=== PATIENT | female | born 1985 | race American Indian/Alaskan Native ===

== ENCOUNTER 2017-03-29 23:18 | Inpatient (IN) | payer MEDICAID ==
[2017-03-29 23:55] LABS: Basophils % (Auto) 1.3 % (0.0-1.8); Eosinophils % (Auto) 3.3 % (0.0-4.3); Hematocrit 39.2 % (30.3-42.9); Hemoglobin 12.8 gm/dl (10.1-14.3); Mean Corpuscular HGB Conc 33 % (30-34); Mean Corpuscular Hemoglobin 28 pg (28-32); Mean Corpuscular Volume 84 fl (79-97); Platelet Count 308 K/mm3 (140-440); Red Blood Count 4.66 M/mm3 (3.65-5.03); Red Cell Distribution Width 13.2 % (13.2-15.2); White Blood Count 5.9 K/mm3 (4.5-11.0)
[2017-03-30 00:06] LABS: INR 1.02 (0.87-1.13)
[2017-03-30 00:07] LABS: Partial Thromboplastin Time 31.3 Sec. (24.2-36.6)
[2017-03-30 00:10] LABS: Anion Gap 16 mmol/L; BUN/Creatinine Ratio 16.25; Blood Urea Nitrogen 13 mg/dL (7-17); Calcium 9.2 mg/dL (8.4-10.2); Carbon Dioxide 25 mmol/L (22-30); Chloride 101.7 mmol/L (98-107); Glucose 99 mg/dL (65-100); Potassium 4.4 mmol/L (3.6-5.0); Sodium 138 mmol/L (137-145)
--- NOTE | 2017-03-30 00:10 | Cat Scan Report ---
FINAL REPORT EXAM: CT HEAD/BRAIN WO CON HISTORY: neuro deficits \T\lt; 6hrs or sx present upon awakening TECHNIQUE: Noncontrast serial axial images from skull base to vertex. PRIORS: None. FINDINGS: There is no mass effect or midline shift. There are no abnormal intra or extra-axial fluid collections. Cortical sulci and lateral ventricles are within normal limits for size and configuration. Basilar cisterns are patent. No acute intracranial hemorrhage is identified. Visualized paranasal sinuses and mastoid air cells are well aerated. No acute osseous abnormality is identified. IMPRESSION: 1. No abnormal mass or acute intracranial hemorrhage is identified. 2. Patient can be further assessed with MRI with diffusion-weighted imaging if indicated.
[2017-03-30] MEDS ORDERED: REGLAN IV ONE (00:15)
[2017-03-30] MEDS ORDERED: MAGNESIUM SULFATE 2GM/50ML 2 GM/50 ML BAG IV ONE (00:15)
[2017-03-30] MEDS ORDERED: BENADRYL IV ONE (00:15)
--- NOTE | 2017-03-30 00:16 | Emergency Department Report ---
ED General Adult HPI - General Chief complaint: Headache Stated complaint: R SIDE NUMBNESS/HOWARD X 3 DAYS/BACK PAIN Time Seen by Provider: 03/29/17 23:49 Source: patient, RN notes reviewed Mode of arrival: Ambulatory Limitations: No Limitations - History of Present Illness Initial comments: This is a 31-year-old female. She is previously unknown to me. She does not have a primary care doctor. She does not have any formal medical problems that she is aware of. She reports that she is not . The patient presents to the ER today with complaint of headache, right upper extremity numbness and chest tightness. The headache started on Tuesday. It is not sudden or thunderclap in nature. It did not reach maximal intensity within an hour. It is not the worse headache of her life. The headache is occipital and left-sided. The headache has been constant. There is no photophobia or phonophobia. There is no neck pain or neck stiffness. Patient reports that at 8:30 on the day of presentation, she developed right upper extremity numbness. She reports she is having this constellation of symptoms in the past, and was instructed that it was a " pinched nerve because of my migraine." However, she also goes on to elaborate that received a formal diagnosis of migraine by neurologist. The chest pain is central, and does not radiate to the back, arms or neck. There is no nausea, vomiting or diaphoresis. There is no leg pain or leg swelling. No posterior leg pain, no control tablets, no recent trips greater than 4 hours, no recent surgeries, no recent aspirin use, no recent cocaine use. No hematemesis or bright red blood per rectum, no midline neck pain, no bladder or bowel retention/incontinence. -: Gradual Location: head, chest, right, upper extremity Radiation: extremity Quality: burning, aching Consistency: constant Improves with: none Worsens with: none Associated Symptoms: chest pain, headaches. denies: confusion - Related Data Previous Rx's Medication Instructions Recorded Last Taken Type Amoxicillin [Amoxicillin TAB] 875 mg PO BID #14 tablet 11/16/15 Unknown Rx Fluticasone [Flonase] 1 spray NS QDAY #1 bottle 11/16/15 Unknown Rx methylPREDNISolone [Medrol Dose 4 mg PO QAM #1 pack 11/16/15 Unknown Rx Derik] Allergies Allergy/AdvReac Type Severity Reaction Status Date / Time No Known Allergies Allergy Unverified 11/15/15 20:38 ED Review of Systems ROS: Stated complaint: R SIDE NUMBNESS/HOWARD X 3 DAYS/BACK PAIN Other details as noted in HPI Constitutional: denies: fever, malaise Eyes: denies: eye discharge ENT: denies: epistaxis Respiratory: denies: cough Cardiovascular: chest pain Gastrointestinal: denies: abdominal pain, nausea, vomiting Genitourinary: denies: dysuria Musculoskeletal: denies: back pain Skin: denies: lesions Neurological: headache, weakness, numbness ED Past Medical Hx - Past Medical History Previous Medical History?: Yes Hx Hypertension: Yes Additional medical history: hypothyroidism - Surgical History Past Surgical History?: Yes Additional Surgical History: cyst removal - Social History Smoking Status: Never Smoker Substance Use Type: None - Medications Home Medications: Home Medications Medication Instructions Recorded Confirmed Last Taken Type Amoxicillin [Amoxicillin TAB] 875 mg PO BID #14 tablet 11/16/15 Unknown Rx Fluticasone [Flonase] 1 spray NS QDAY #1 bottle 11/16/15 Unknown Rx methylPREDNISolone [Medrol Dose 4 mg PO QAM #1 pack 11/16/15 Unknown Rx Derik] ED Physical Exam - General Limitations: No Limitations General appearance: alert, in no apparent distress - Head Head exam: Present: atraumatic, normocephalic - Eye Eye exam: Present: normal appearance, PERRL, EOMI. Absent: nystagmus - ENT ENT exam: Present: normal exam, normal orophraynx, mucous membranes moist, normal external ear exam - Neck Neck exam: Present: normal inspection, full ROM - Respiratory Respiratory exam: Present: normal lung sounds bilaterally. Absent: respiratory distress, wheezes, rales, rhonchi, stridor, chest wall tenderness - Cardiovascular Cardiovascular Exam: Present: regular rate, normal rhythm, normal heart sounds. Absent: bradycardia, tachycardia, irregular rhythm, systolic murmur, diastolic murmur, rubs, gallop - GI/Abdominal GI/Abdominal exam: Present: soft, normal bowel sounds. Absent: distended, tenderness, guarding, rebound, rigid, pulsatile mass - Extremities Exam Extremities exam: Present: normal inspection, full ROM, normal capillary refill. Absent: tenderness, pedal edema, joint swelling, calf tenderness - Back Exam Back exam: Present: normal inspection, full ROM. Absent: tenderness, CVA tenderness (R), CVA tenderness (L), muscle spasm, paraspinal tenderness, vertebral tenderness - Neurological Exam Neurological exam: Present: alert, oriented X3, normal gait, other (5 and a 5 strength bilateral upper and lower extremities. Sensation intact to light touch in the bilateral upper and lower extremities, however the patient endorses decreased sensation to light touch in the right upper extremity. There is no facial droop, the tongue is midline, extraocular movements are intact bilaterally. V1, V2, V3 intact bilaterally. Shoulder shrug is intact bilaterally.). Absent: motor sensory deficit - Psychiatric Psychiatric exam: Present: anxious - Skin Skin exam: Present: warm, dry, intact, normal color. Absent: rash ED Course Vital Signs 03/29/17 03/30/17 03/30/17 23:23 00:01 00:45 Temperature 97.7 F Pulse Rate 62 60 65 Respiratory 18 17 12 Rate Blood Pressure 119/80 Blood Pressure 104/67 109/73 [Left] O2 Sat by Pulse 99 98 99 Oximetry 03/30/17 01:35 Temperature Pulse Rate 61 Respiratory 19 Rate Blood Pressure Blood Pressure 114/74 [Left] O2 Sat by Pulse 100 Oximetry ED Medical Decision Making - Lab Data Result diagrams: 03/29/17 23:36 03/29/17 23:36 - EKG Data -: EKG Interpreted by [facility] EKG shows normal: sinus rhythm, axis, intervals, QRS complexes, ST-T waves - EKG Data 03/30/17 02:16 Normal sinus, 60 beats per minute, normal axis, left axis deviation, not morphologically consistent with STEMI. There is no prior for comparison. - Radiology Data Radiology results: report reviewed, image reviewed Noncontrast CT scan of the brain is negative. X-ray the chest is negative - Medical Decision Making Differential diagnosis: Transient ischemic attack, stroke, complex migraine, radiculopathy, acute coronary syndrome, anxiety, conversion disorder Assessment and plan: 31-year-old female, no vascular risk factors, ABCD 2 score of 1, with headache associated with right upper extremity numbness. NIH score is 1. Headache has been present for a few days, numbness started on the day of presentation. Patient most likely has undiagnosed complex migraine. Given subjective sensory symptoms with no obvious reproducible or objective neurologic deficits, risks of tPA outweigh the benefits, and I do not believe the patient requires TPA. This was discussed in conjunction with the consulting stroke neurologist, Dr. Negrita Briceño who agreed. Given that patient' s symptoms are sensory in nature, they are not debilitating, and she will not benefit from TPA. Consulting stroke neurologist did recommend admission for TIA /stroke workup. Patient's chest pain is atypical, low risk by MAN score, low risk by heart score, low risk by well's criteria, no pulmonary embolus or DVT risk factors, perc negative. Case is discussed with the Hospital physician, Dr. Travis, who accepts patient to his service. Critical care attestation.: If time is entered above; I have spent that time in minutes in the direct care of this critically ill patient, excluding procedure time. ED Disposition Clinical Impression: Headache, Chest pain, Numbness on right side Disposition: DC-09 OP ADMIT IP TO THIS HOSP Is pt being admited?: Yes Does the pt Need Aspirin: Yes Condition: Good Instructions: Chest Pain (ED) Referrals: PRIMARY CARE, [Primary Care Provider] - 3-5 Days
--- NOTE | 2017-03-30 01:57 | XRay Report ---
FINAL REPORT PROCEDURE: XR CHEST 1V AP TECHNIQUE: Chest radiograph anteroposterior view. CPT 84537 HISTORY: cp COMPARISON: No prior studies are available for comparison. FINDINGS: Heart: Normal. Mediastinum/Vessels: Normal. Lungs/Pleural space: Lungs are clear and expanded. There are no infiltrates.. Bony thorax: No acute osseous abnormality. Life support devices: None. IMPRESSION: No acute cardiopulmonary abnormality.
[2017-03-30] MEDS ORDERED: TYLENOL PO PRN (02:55)
[2017-03-30] MEDS ORDERED: ZOFRAN IV PRN (02:55)
[2017-03-30] MEDS ORDERED: MORPHINE IV PRN (02:56)
[2017-03-30] MEDS: NITRO-BID 2% TP SCH ×3 (03:05→15:17)
--- NOTE | 2017-03-30 06:34 | History and Physical Report ---
CHIEF COMPLAINT: Headache. Other complaints include chest pain. HISTORY OF PRESENT ILLNESS: The patient is a 31-year-old female, who came to the Emergency Room complaining of headache, which the patient describes as located in the occipital in her left side of the head. There is no history of any visual symptoms or dizziness associated with headache. There was also no history of any neck pain or stiffness; however, the patient complained of right upper extremity numbness and said that she has had these symptoms in the past and was told that it was caused by pinched nerve because of migraine. The patient has a complaint of chest pain that is located in the central part of the chest. Pain does not radiate and was not associated with any nausea, vomiting or diaphoresis. There was also no history of shortness of breath and the patient presented to the Emergency Room. PAST MEDICAL HISTORY: Pertinent for hypothyroidism. Also, the patient has past history of hypertension and questionable migraine headache. PAST SURGICAL HISTORY: Pertinent for cyst removal. FAMILY HISTORY: Noncontributory. SOCIAL HISTORY: The patient does not smoke, does not drink alcohol and does not use illicit drugs. MEDICATIONS: The patient is on amoxicillin 875 mg by mouth twice daily. Also, the patient is on Flonase 1 spray nasally daily and on Medrol DosePak, methylprednisolone. ALLERGIES: There are no known drug allergies. REVIEW OF SYSTEMS: CONSTITUTIONAL: There is no fever, no chills, no diaphoresis. HEENT: Headache present. No sore throat. CARDIOVASCULAR SYSTEM: There is chest pain, but no orthopnea. RESPIRATORY: There is no shortness of breath or cough. GASTROINTESTINAL: There is no nausea, no vomiting, no abdominal pain, diarrhea or constipation. NEUROLOGICAL: Numbness of the left upper extremity noted. No change in mental status and no dizziness. MUSCULOSKELETAL: There is no joint pain or swelling. DERMATOLOGICAL: There is no skin rash or itching. GENITOURINARY: There is no dysuria, hematuria, or flank pain. Rest of system review is normal. PHYSICAL EXAMINATION: GENERAL: At the time of exam, the patient was found to be alert, oriented x 3 and not in acute distress. VITAL SIGNS: Shows normal temperature with pulse of 65, respirations 12, blood pressure 109/73, O2 sat of 99% on room air. HEENT: Eyes show pupils to be equal, round, reactive to light and accommodating. Extraocular muscles are intact. NECK: Supple with no JVD or carotid bruit. CARDIOVASCULAR SYSTEM: Show first and second heart sounds with no gallops or murmur. RESPIRATORY SYSTEM: Show good air entry on both sides of the lung with no abnormal breath sounds. GASTROINTESTINAL SYSTEM: Show abdomen to be full, soft, nontender with no organomegaly or rigidity. NEUROLOGICAL: Showed no focal deficit. MUSCULOSKELETAL: Show no joint swelling or tenderness. DERMATOLOGICAL SYSTEM: Show no skin rash. GENITOURINARY: Showing no costovertebral angle tenderness. PERTINENT LABORATORY DATA AND IMAGING STUDIES: The patient had CT of the head done that shows no abnormal mass or acute intracranial hemorrhage is identified. Also, the CT was read showing no acute osseous abnormalities. Recommendation is to do an MRI for further the patient's workup. The patient also had a chest x-ray done that showed no acute cardiopulmonary process. The patient's lab results CBC came back unremarkable except for elevated lymphocyte count of 52.3%. Chemistry was unremarkable. Cardiac enzymes came back normal. DIAGNOSES: 1. Transient ischemic attack. 2. Atypical chest pain. PLAN: The patient will be admitted to medical floor and will have MRI of the brain done this morning. The patient will also have bilateral carotid Doppler done and 2D echo done this morning. The patient will have cardiac enzymes, troponin, total CK, and CK-MB checked q. 6 hours x 2 more levels and will be on aspirin 325 mg by mouth daily. The patient will also be on Tylenol 650 mg every 4 hours as needed for fever and headache and will be on IV morphine 2 mg every 4 hours for pain. The patient will also be on nitro paste half inch to anterior chest wall q.i.d. and IV Zofran 4 mg every 8 hours for nausea and vomiting. The patient will be on oxygen by nasal cannula at 2 liters per minute and will have bilateral carotid Doppler done this morning. Further workup of the patient's condition will be dependent on the results of the MRI, carotid Doppler and the echo as well as the cardiac enzymes. JOB# [id number] OCN/NTS
[2017-03-30 07:20] LABS: Creatine Kinase MB < 1.0 ng/mL (0.0-4.0)
[2017-03-30 07:22] LABS: Creatine Kinase 73 units/L (30-135)
[2017-03-30] MEDS ORDERED: ASPIRIN PO SCH (10:00)
--- NOTE | 2017-03-30 10:30 | Admit Criteria Form ---
Admission Criteria Documentation: HEADACHES Clinical Indications for Admission to Inpatient Care (Weiner/check or initial the applicable condition/criteria): Admission is indicated for 1 or more of the following(1)(2)(3)(4)(5): [ ]I. Unruptured but threatening aneurysm or vascular malformation [ ]II. Venous sinus thrombosis [ ]III. Increased intracranial pressure [ ]IV. Cerebral spinal fluid leak [ ]V Medication-overuse headache that has failed all outpatient management options(6)(7)(8) [ ]. Vasculitis (eg, giant cell (temporal) arteritis, central nervous system vasculitis) requiring intravenous corticosteroids, intravenous antithrombotic therapy, or inpatient monitoring (e.g., visual symptoms or findings, other ischemic manifestations)[A](9) [ ]VII. Severe (new) neurologic findings requiring inpatient care as indicated by 1 or more of the following(10)(11)(12) [ ]a) Papilledema [ ]b) Cerebral edema [ ]c) mass effect on CT scan [ ]d) Cerebral spinal fluid leak (13) [ ]e) Hydrocephalus(14)(15) [ ]f) Uncontrolled seizures(9)(16) [X ]VIII Inpatient admission required rather than observational care (See Headaches: Observation Care as appropriate) because of 1 or more of the following(17): [X ]a) Severe pain requiring acute inpatient management [ ]b) Altered mental status that is severe or persistent [ ]c) Vomiting that is severe or persistent [ ]d) Dehydration that is severe or persistent [ ]e) New-onset focal neurologic deficit that is severe or persistent (eg, does not resolve during observation care) (18) [ ]f) Hypertension requiring inpatient treatment [ ]g) IV fluid required rather than oral rehydration to replace significant ongoing (eg, for greater than 24 hours) losses (greater than 200 ml/hr or 3L/m2 per day) [ ]h) Cerebral bleeding, hydrocephalus, or vasospasm monitoring (19) [ ]i) Increased intracranial pressure or cerebral edema monitoring [ ]j) Other condition treatment or monitoring requiring inpatient admission Extended stay beyond goal length of stay may be needed for (36)(37): [ ]a) Intractable migraine [ ]b) Giant cell (temporal) arteritis with visual or other ischemic signs or symptoms(1) [ ]c) Subarachnoid or intracranial hemorrhage [ ]d) Malignant hypertension [ ]e) Detoxification from drug withdrawal in medication-overuse headache (6)( 8) The original [facility] [employer] content created by [facility] has been revised. The portions of the content which have been revised are identified through the use of italic text or in bold, and [facility] has neither reviewed nor approved the modified material.All other unmodified content is copyright [facility] [employer]. Please see references footnoted in the original [facility] edition 2017 Admission Criteria Met: Yes
[2017-03-30 14:57] LABS: Creatine Kinase MB 1.1 ng/mL (0.0-4.0)
[2017-03-30 15:01] LABS: Creatine Kinase 68 units/L (30-135)
--- NOTE | 2017-03-30 16:18 | Magnetic Resonance Report ---
MRI BRAIN WITHOUT CONTRAST INDICATION: TIA. COMPARISON: Yesterday's head CT. FINDINGS: Noncontrast multiplanar and multisequence MRI of the brain demonstrates normal ventricles and sulci without acute infarct, hemorrhage, mass effect or midline shift. No abnormal extra-axial masses or fluid collections. Normal major intracranial vascular flow voids. Normal posterior fossa structures with symmetric seventh and eighth nerve complexes. Symmetric, grossly unremarkable eye globes. Approximately 1 cm right maxillary sinus mucus retention cyst laterally. Slight left frontoethmoid sinus mucosal thickening. Clear remainder imaged paranasal sinuses and mastoid air cells. Normal midline structures without evidence of Chiari malformation. CONCLUSION: No acute intracranial MRI abnormality, as described. Thank you for the opportunity to participate in this patient's care.
[2017-03-30] MEDS ORDERED: FIORICET PO PRN (16:21)
--- NOTE | 2017-03-30 16:23 | Discharge Summary ---
Providers - Providers Date of Admission: 03/30/17 02:47 Date of discharge: 03/30/17 Attending physician: QUINTON HUERTAS MD Primary care physician: CONE CLEANER Hospitalization Reason for admission: HEADACHE Condition: Stable Hospital course: Patient is a 31-year-old female with a hx of migraine according to patient since childhood, admitted with complaint of headache, right upper extremity numbness and chest tightness. patient reports this is similar to her pain, she has been on opioids in the past with no resulotion and has had MRI in the past as a teanage that was negative but never followed with Neurologist. 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 It did not reach maximal intensity within an hour. It is not the worse headache of her life. The headache is occipital and left- sided. The headache has been constant. There is no photophobia or phonophobia. There is no neck pain or neck stiffness. Patient reports that at 8:30 on the day of presentation, she developed right upper extremity numbness. She reports she is having this constellation of symptoms in the past, and was instructed that it was a "pinched nerve because of my migraine." The chest pain is central, and does not radiate to the back, arms or neck. There is no nausea, vomiting or diaphoresis. There is no leg pain or leg swelling. No posterior leg pain, no control tablets, no recent trips greater than 4 hours, no recent surgeries, no recent aspirin use, no recent cocaine use. No hematemesis or bright red blood per rectum, no midline neck pain, no bladder or bowel retention/incontinence. she was started on pain medications with some improvement. she had MRI which was negative. Chest pain was reproducible and had resolved. I instructed that she follows with Neurology and will start her on Fiorcet. HER Numbness is improved and she has no fever. 1. Hemiplegic Migraine 2. Atypical chest pain 3. Disposition: DC-01 TO HOME OR SELFCARE Time spent for discharge: 35 mins Core Measure Documentation - Palliative Care Palliative Care/ Comfort Measures: Not Applicable - Core Measures Any of the following diagnoses?: none - VTE Discharge Requirements Deep Vein Thrombosis/Pulmonary Embolism Present on Admission: No Exam - Constitutional Vitals: Temp Pulse Resp BP Pulse Ox 97.9 F 60 18 110/68 99 03/30/17 11:10 03/30/17 15:17 03/30/17 11:10 03/30/17 15:17 03/30/17 11:10 General appearance: Present: no acute distress, well-nourished - EENT Eyes: Present: PERRL, EOM intact ENT: hearing intact, clear oral mucosa - Neck Neck: Present: supple, normal ROM - Respiratory Respiratory effort: normal Respiratory: bilateral: CTA - Cardiovascular Rhythm: regular Heart Sounds: Present: S1 & S2 - Extremities Extremities: no ischemia, pulses intact, pulses symmetrical, No edema, normal temperature, normal color, Full ROM Peripheral Pulses: within normal limits - Abdominal General gastrointestinal: Present: soft, non-tender, non-distended, normal bowel sounds. Absent: tender, distended - Rectal Rectal Exam: deferred - Integumentary Integumentary: Present: clear, warm, dry - Musculoskeletal Musculoskeletal: strength equal bilaterally - Psychiatric Psychiatric: appropriate mood/affect - Neurologic Neurologic: CNII-XII intact, moves all extremities Plan Activity: advance as tolerated, fall precautions Diet: regular Follow up with: PRIMARY CAREMD [Primary Care Provider] - 3-5 Days VIVIANE CLARK MD [Staff Physician] - 7 Days Prescriptions: Butalb/Acetamin/Caff 50-325-40 [Fioricet] 1 tab PO Q4H PRN #30 tablet PRN Reason: Headache
[2017-03-30 18:27] VITALS: BP 103/63
--- NOTE | 2017-04-04 13:16 | Query- Chest Pain ---
Roshan Aburto____Kristine Date: 04/04/17 Machine Tracer/CDS:___Klaudia / Thanh Phone#:___[phone] Exercise your independent professional judgment when responding to query. Questions asked do not imply a particular answer is desired or expected. We greatly appreciate your clarification on this issue. Clinical Documentation States: 31 year old female was admitted on 03/30/17. The discharge summary (Dr. Carmona) states " Patient is a 31-year-old female with a hx of migraine according to patient since childhood, admitted with complaint of headache, right upper extremity numbness and chest tightness 2. Atypical chest pain " Please document the etiology of Chest Pain: [ ] Myocardial Infarction [ ] Pneumonia [ ] Mediastinitis [x ] Costochondritis [ ] Pulmonary Embolism [ ] Coronary Artery Disease [ ] GERD [ ] Other: [ ] Comment/Explanation: Present on Admission: [ y] Yes (Y) [ ] Clinically undeterminable (W) [ ] No(N) Please document response in your Progress Notes and/or Discharge Summary and indicate if the condition was present on admission. ART
--- NOTE | 2017-04-04 13:32 | Query- General ---
Dear ___Kristine Date:___04/04/17 Assurance Auditor/CDS:____Katalinasa / Thanh Phone#:__[phone] Exercise your independent professional judgment when responding to this query. Questions asked do not imply a particular answer is desired or expected. We greatly appreciate your clarification on this issue. Clinical Documentation States: 31 year old female was admitted on 03/30/17. The discharge summary (Dr. Carmona) states " Hospital course: Patient is a 31-year-old female with a hx of migraine according to patient since childhood, admitted with complaint of headache, right upper extremity numbness and chest tightness. Patient reports that at 8:30 on the day of presentation, she developed right upper extremity numbness. She reports she is having this constellation of symptoms in the past, and was instructed that it was a "pinched nerve because of my migraine " Given the above clinical scenario can you please provide an appropriate diagnosis based on your knowledge of the patient: Please clarify the possible etiology of Right extremity numbness: PHYSICIAN RESPONSE: Possible etiology of right upper extremity numbness: stuff Present on Admission: [ ] Yes (Y) [ ] Clinically undeterminable (W) [ y]No(N) Please also document response in your Progress Notes and/or Discharge Summary and indicate if the condition was present on admission. ART
--- NOTE | 2017-04-05 10:04 | Vascular Lab Report ---
CAROTID DUPLEX STUDY: RIGHT PSVEDV CCA PROX:8011 CCA DIST:8616 ICA PROX:7315 ICA MID:5922 ICA DIST:5120 ECA: 678 VERT: 62 10 LEFT PSVEDV CCA PROX:74654 CCA DIST:9620 ICA PROX:7018 ICA MID:6321 ICA DIST:6731 ECA: 879 VERT: 61 18 REASON FOR EXAM: TIA. COMMENTS ON THE RIGHT: Doppler frequency analysis is consistent with 1 to 15 percent diameter reduction of the internal carotid artery. No plaque is seen. The common carotid artery is patent. The external carotid artery is patent. The vertebral artery has antegrade flow. COMMENTS ON THE LEFT: Doppler frequency analysis is consistent with 1 to 15 percent diameter reduction of the internal carotid artery. No plaque is seen. The common carotid artery is patent. The external carotid artery is patent. The vertebral artery has antegrade flow. IMPRESSION: Normal carotid artery study.
== END 2017-03-30 19:00 | disposition home or self-care (01) | DRG 206 ==
LOC: ED 23:18 → 4A 03-30 02:47
PROVIDERS: ADMIT Internal Medicine; ATTEND Internal Medicine
DX: M94.0 Chondrocostal junction syndrome [Tietze] (principal); G43.409 Hemiplegic migraine, not intractable, without status migrainosus; G45.9 Transient cerebral ischemic attack, unspecified; I10 Essential (primary) hypertension; E03.9 Hypothyroidism, unspecified
CPT/HCPCS: 36415; 70450; 70551; 71010; 80048; 82550; 82553; 82962; 84484; 84702; 85025; 85610; 85670; 85730; 93005; 93010; 93306; 93880; 96365; 96375; J1200; J2765; J2930; J3475

== ENCOUNTER 2017-11-03 10:35 | Observation (INO) | payer MEDICAID ==
[2017-11-03 11:57] LABS: Basophils % (Auto) 0.8 % (0.0-1.8); Eosinophils # (Auto) 0.1 K/mm3 (0.0-0.4); Eosinophils % (Auto) 1.7 % (0.0-4.3); Hematocrit 37.7 % (30.3-42.9); Hemoglobin 12.8 gm/dl (10.1-14.3); Lymphocytes # (Auto) 1.8 K/mm3 (1.2-5.4); Lymphocytes % (Auto) 36.7 % (13.4-35.0); Mean Corpuscular HGB Conc 34 % (30-34); Mean Corpuscular Hemoglobin 28 pg (28-32); Mean Corpuscular Volume 82 fl (79-97); Monocytes # (Auto) 0.5 K/mm3 (0.0-0.8); Monocytes % (Auto) 9.9 % (0.0-7.3); Platelet Count 297 K/mm3 (140-440); Red Blood Count 4.59 M/mm3 (3.65-5.03); Red Cell Distribution Width 13.2 % (13.2-15.2)
[2017-11-03 12:09] LABS: BUN/Creatinine Ratio 14; Blood Urea Nitrogen 10 mg/dL (7-17); Calcium 9.1 mg/dL (8.4-10.2); Hemolysis Index 5
[2017-11-03 12:49] LABS: Bilirubin,Urine NEG (Negative); Blood,Urine SM (Negative); Color,Urine Yellow (Yellow); Mucus,Urine FEW /HPF; Protein,Urine <15 mg/dL mg/dL (Negative); Urobilinogen,Urine < 2.0 mg/dL (<2.0); WBC,Urine < 1.0 /HPF (0.0-6.0)
[2017-11-03 12:51] LABS: HCG Qualitative,Urine Negative (Negative)
[2017-11-03] MEDS ORDERED: ASPIRIN PO ONE (14:01)
--- NOTE | 2017-11-03 14:06 | Emergency Department Report ---
ED Chest Pain HPI - General Chief Complaint: Dizziness Stated Complaint: DIZZY Time Seen by Provider: 11/03/17 13:59 Source: patient Mode of arrival: Ambulatory Limitations: No Limitations - History of Present Illness Initial Comments: Patient is a 32 -year-old female that presented to emergency room with dizziness 3 days. Patient states that her dizziness is worsening. Patient also complains of chest pain that is intermittent that started today that radiates to her right arm. And causes right arm numbness. Patient denies diaphoresis and anxiety. Patient denies fever and chills. Patient denies headache. Patient states she is not taking any medications. MD Complaint: chest pain -: Sudden Onset: during rest Pain Location: substernal Pain Radiation: RUE Severity: mild Severity scale (0 -10): 3 Quality: tightness Consistency: intermittent Improves With: rest Worsens With: exertion, movement re: denies: nausea, vomting, diaphoresis, dyspnea, sense of impending doom Other Symptoms: denies: cough, fever, syncope, rash, acid taste in mouth, leg swelling, palpitations, burping Treatments Prior to Arrival: none Aspirin use within the Past 7 Days: (0) No - Related Data On Oral Contraceptives: No Home Medications Medication Instructions Recorded Confirmed Last Taken No Known Home Medications [No 11/03/17 11/03/17 Unknown Reported Home Medications] Allergies Allergy/AdvReac Type Severity Reaction Status Date / Time No Known Allergies Allergy Unverified 11/15/15 20:38 Heart Score - HEART Score History: Slightly suspicious EKG: Normal Age: < 45 Risk factors: No known risk factors Troponin: < normal limit HEART Score: 0 ED Review of Systems ROS: Stated complaint: DIZZY Other details as noted in HPI Comment: All other systems reviewed and negative Constitutional: weakness. denies: chills, fever Eyes: denies: eye pain, eye discharge, vision change ENT: denies: ear pain, throat pain Respiratory: denies: cough, shortness of breath, wheezing Cardiovascular: chest pain. denies: palpitations Endocrine: no symptoms reported Gastrointestinal: denies: abdominal pain, nausea, diarrhea Genitourinary: denies: urgency, dysuria, discharge Musculoskeletal: denies: back pain, joint swelling, arthralgia Skin: denies: rash, lesions Neurological: weakness. denies: headache, paresthesias Psychiatric: denies: anxiety, depression Hematological/Lymphatic: denies: easy bleeding, easy bruising ED Past Medical Hx - Past Medical History Previous Medical History?: Yes Hx Hypertension: Yes Hx Headaches / Migraines: Yes Additional medical history: hypothyroidism - Surgical History Past Surgical History?: Yes Additional Surgical History: cyst removal - Family History Family history: hypertension - Social History Smoking Status: Never Smoker Substance Use Type: None - Medications Home Medications: Home Medications Medication Instructions Recorded Confirmed Last Taken Type No Known Home Medications [No 11/03/17 11/03/17 Unknown History Reported Home Medications] ED Physical Exam - General Limitations: No Limitations General appearance: alert, in no apparent distress - Head Head exam: Present: atraumatic, normocephalic - Eye Eye exam: Present: normal appearance - ENT ENT exam: Present: mucous membranes moist - Neck Neck exam: Present: normal inspection - Respiratory Respiratory exam: Present: normal lung sounds bilaterally. Absent: respiratory distress - Cardiovascular Cardiovascular Exam: Present: regular rate, normal rhythm. Absent: systolic murmur, diastolic murmur, rubs, gallop - GI/Abdominal GI/Abdominal exam: Present: soft, normal bowel sounds - Extremities Exam Extremities exam: Present: normal inspection - Back Exam Back exam: Present: normal inspection - Neurological Exam Neurological exam: Present: alert, oriented X3 - Psychiatric Psychiatric exam: Present: normal affect, normal mood - Skin Skin exam: Present: warm, dry, intact, normal color. Absent: rash ED Course Vital Signs 11/03/17 11:16 Temperature 98.6 F Pulse Rate 65 Respiratory 16 Rate Blood Pressure 124/69 O2 Sat by Pulse 99 Oximetry - Reevaluation(s) Reevaluation #1: Results discussed with patient. Patient agreeable with plan of care. Patient to be admitted. Hospitalist consult. Hospitalist agreed to admit. 11/03/17 16:03 MAN score - Man Score Age > 65: (0) No Aspirin use within the Past 7 Days: (0) No 3 or more CAD Risk Factors: (0) No 2 or more Angina events in past 24 hrs: (0) No Known CAD with more than 50% Stenosis: (0) No Elevated Cardiac Markers: (0) No ST Deviation Greater than 0.5mm: (0) No MAN Score: 0 ED Medical Decision Making - Lab Data Result diagrams: 11/03/17 11:42 11/03/17 11:42 - EKG Data -: EKG Interpreted by Me EKG shows normal: sinus rhythm, axis, intervals, QRS complexes, ST-T waves Rate: normal - EKG Data Interpretation: normal EKG - Radiology Data Radiology results: report reviewed, image reviewed Normal limits CT head - Medical Decision Making Will admit patient to hospital. - Differential Diagnosis cp. acs. dehydration. dizziness Critical care attestation.: If time is entered above; I have spent that time in minutes in the direct care of this critically ill patient, excluding procedure time. ED Disposition Clinical Impression: Chest pain, Dizziness Disposition: DC-09 OP ADMIT IP TO THIS HOSP Is pt being admited?: Yes Does the pt Need Aspirin: No Condition: Serious Time of Disposition: 16:04
[2017-11-03] MEDS ORDERED: NACL 0.9% 1000 ML 1,000 ML ONE (14:25)
[2017-11-03 14:40] LABS: Creatine Kinase MB 1.1 ng/mL (0.0-4.0)
[2017-11-03] MEDS ORDERED: NACL 0.9% 1000 ML 1,000 ML IV ONE (14:46)
--- NOTE | 2017-11-03 15:41 | Cat Scan Report ---
CT HEAD WITHOUT CONTRAST: HISTORY: Dizziness. TECHNIQUE: Sequential 2.5mm CT images. COMPARISON: 03/29/17. FINDINGS: Cerebral Parenchyma: Within normal limits. Cerebellum: Within normal limits. Brainstem: Within normal limits. Ventricles: Normal. Sella: Normal. Extra-axial spaces: Normal. Basal Cisterns: Normal. Intracranial Hemorrhage: None. Midline Shift: None. Calvarium: Normal. Sinuses: Normal. Mastoid Air Cells: Normal. Visualized Orbits: Normal. IMPRESSION: Cranial CT scan within normal limits.
[2017-11-03] MEDS ORDERED: TYLENOL PO PRN (19:42)
[2017-11-03] MEDS ORDERED: DILAUDID IV PRN (19:42)
[2017-11-03] MEDS ORDERED: ZOFRAN IV PRN (19:42)
[2017-11-03] MEDS ORDERED: MORPHINE IV PRN (19:42)
[2017-11-03] MEDS ORDERED: SODIUM CHLORIDE FLUSH SYRINGE 10 ML IV PRN (19:42)
[2017-11-03] MEDS ORDERED: AMBIEN PO PRN (19:42)
[2017-11-03] MEDS ORDERED: PERCOCET 5/325 PO PRN (19:42)
--- NOTE | 2017-11-03 19:42 | History and Physical Report ---
History of Present Illness Date of examination: 11/03/17 Date of admission: 11/03/17 Chief complaint: See dictated H/p in reports History of present illness: YAKUTAT See dictated H/p in reports Medications and Allergies Allergies Allergy/AdvReac Type Severity Reaction Status Date / Time No Known Allergies Allergy Unverified 11/15/15 20:38 Home Medications Medication Instructions Recorded Confirmed Last Taken Type No Known Home Medications [No 11/03/17 11/03/17 Unknown History Reported Home Medications] Exam - Constitutional Vitals: Temp Pulse Resp BP Pulse Ox 98.6 F 65 16 124/69 99 11/03/17 11:16 11/03/17 11:16 11/03/17 11:16 11/03/17 11:16 11/03/17 11:16 Results - Labs CBC & Chem 7: 11/04/17 02:11 11/04/17 02:11 Labs: Laboratory Last Values WBC 5.0 K/mm3 (4.5-11.0) 11/03/17 11:42 RBC 4.59 M/mm3 (3.65-5.03) 11/03/17 11:42 Hgb 12.8 gm/dl (10.1-14.3) 11/03/17 11:42 Hct 37.7 % (30.3-42.9) 11/03/17 11:42 MCV 82 fl (79-97) 11/03/17 11:42 MCH 28 pg (28-32) 11/03/17 11:42 MCHC 34 % (30-34) 11/03/17 11:42 RDW 13.2 % (13.2-15.2) 11/03/17 11:42 Plt Count 297 K/mm3 (140-440) 11/03/17 11:42 Lymph % (Auto) 36.7 % (13.4-35.0) H 11/03/17 11:42 [place] % (Auto) 9.9 % (0.0-7.3) H 11/03/17 11:42 Eos % (Auto) 1.7 % (0.0-4.3) 11/03/17 11:42 Baso % (Auto) 0.8 % (0.0-1.8) 11/03/17 11:42 Lymph # 1.8 K/mm3 (1.2-5.4) 11/03/17 11:42 [place] # 0.5 K/mm3 (0.0-0.8) 11/03/17 11:42 Eos # 0.1 K/mm3 (0.0-0.4) 11/03/17 11:42 Baso # 0.0 K/mm3 (0.0-0.1) 11/03/17 11:42 Seg Neutrophils % 50.9 % (40.0-70.0) 11/03/17 11:42 Seg Neutrophils # 2.5 K/mm3 (1.8-7.7) 11/03/17 11:42 Sodium 140 mmol/L (137-145) 11/03/17 11:42 Potassium 4.1 mmol/L (3.6-5.0) 11/03/17 11:42 Chloride 102.7 mmol/L (98-107) 11/03/17 11:42 Carbon Dioxide 26 mmol/L (22-30) 11/03/17 11:42 Anion Gap 15 mmol/L 11/03/17 11:42 BUN 10 mg/dL (7-17) 11/03/17 11:42 Creatinine 0.7 mg/dL (0.7-1.2) 11/03/17 11:42 Estimated GFR > 60 ml/min 11/03/17 11:42 BUN/Creatinine Ratio 14 % 11/03/17 11:42 Glucose 94 mg/dL (65-100) 11/03/17 11:42 Calcium 9.1 mg/dL (8.4-10.2) 11/03/17 11:42 Total Creatine Kinase 61 units/L (30-135) 11/03/17 14:13 CK-MB (CK-2) 1.1 ng/mL (0.0-4.0) 11/03/17 14:13 CK-MB (CK-2) Rel Index 1.8 (0-4) 11/03/17 14:13 Troponin T < 0.010 ng/mL (0.00-0.029) 11/03/17 14:13 Urine Color Yellow (Yellow) 11/03/17 12:23 Urine Turbidity Clear (Clear) 11/03/17 12:23 Urine pH 7.0 (5.0-7.0) 11/03/17 12:23 Ur Specific [place] 1.016 (1.003-1.030) 11/03/17 12:23 Urine Protein <15 mg/dl mg/dL (Negative) 11/03/17 12:23 Urine Glucose (UA) Neg mg/dL (Negative) 11/03/17 12:23 Urine Ketones Neg mg/dL (Negative) 11/03/17 12:23 Urine Blood Sm (Negative) 11/03/17 12:23 Urine Nitrite Neg (Negative) 11/03/17 12:23 Urine Bilirubin Neg (Negative) 11/03/17 12:23 Urine Urobilinogen < 2.0 mg/dL (<2.0) 11/03/17 12:23 Ur Leukocyte Esterase Neg (Negative) 11/03/17 12:23 Urine WBC (Auto) < 1.0 /HPF (0.0-6.0) 11/03/17 12:23 Urine RBC (Auto) 3.0 /HPF (0.0-6.0) 11/03/17 12:23 U Epithel Cells (Auto) 2.0 /HPF (0-13.0) 11/03/17 12:23 Urine Mucus Few /HPF 11/03/17 12:23 Urine HCG, Qual Negative (Negative) 11/03/17 12:23
[2017-11-03] MEDS: PEPCID PO SCH (22:03)
[2017-11-03] MEDS: HEPARIN SUB-Q SCH (22:03)
[2017-11-03] MEDS: SODIUM CHLORIDE FLUSH SYRINGE 10 ML IV SCH (22:04)
[2017-11-04 02:35] LABS: Basophils % (Auto) 0.9 % (0.0-1.8); Eosinophils # (Auto) 0.2 K/mm3 (0.0-0.4); Eosinophils % (Auto) 3.1 % (0.0-4.3); Hemoglobin 12.5 gm/dl (10.1-14.3); Lymphocytes # (Auto) 2.2 K/mm3 (1.2-5.4); Lymphocytes % (Auto) 44.8 % (13.4-35.0); Mean Corpuscular HGB Conc 34 % (30-34); Mean Corpuscular Hemoglobin 28 pg (28-32); Mean Corpuscular Volume 82 fl (79-97); Monocytes # (Auto) 0.4 K/mm3 (0.0-0.8); Monocytes % (Auto) 8.8 % (0.0-7.3); Platelet Count 297 K/mm3 (140-440); Red Blood Count 4.51 M/mm3 (3.65-5.03); Red Cell Distribution Width 13.3 % (13.2-15.2)
[2017-11-04 02:54] LABS: Alanine Aminotransferase 11 units/L (7-56); Albumin 3.5 g/dL (3.9-5); BUN/Creatinine Ratio 14; Blood Urea Nitrogen 10 mg/dL (7-17); Calcium 8.4 mg/dL (8.4-10.2); Hemolysis Index 7
[2017-11-04 05:24] VITALS: BP 108/58
[2017-11-04] MEDS ORDERED: ANTIVERT PO PRN (06:18)
--- NOTE | 2017-11-04 07:47 | History and Physical Report ---
CHIEF COMPLAINT: Left-sided chest pain. HISTORY OF PRESENT ILLNESS: The patient is a 32-year-old -[place] female who presents to the Emergency Room with dizziness of 3 days' duration and left-sided chest pain for 1 day. Chest pain radiates to right arm. Retrosternal chest pain. The patient is more concerned about her feeling dizziness and weakness. No shortness of breath, no palpitations, no diaphoresis. No exacerbating or relieving factors. Chest pain is about 5 on a scale of 1-10, intermittent in nature. No recent travel. PAST MEDICAL HISTORY: Hypertension and migraines and hypothyroidism. PAST SURGICAL HISTORY: Cyst removal. FAMILY HISTORY: Hypertension. SOCIAL HISTORY: Does not smoke. REVIEW OF SYSTEMS: Significant for dizziness and chest pain and feeling weak. Otherwise, 14-point review of systems negative. CURRENT MEDICATIONS: None. PHYSICAL EXAMINATION: GENERAL: Young female, cooperative during examination. VITAL SIGNS: Blood pressure is 126/82, temperature is 98.2, pulse is 80, respirations are 20. HEENT: Unremarkable. Pupils equal and reactive. No pallor. NECK: Supple, no lymphadenopathy, no thyromegaly. No carotid artery bruit. LUNGS: Clear to auscultation and percussion. Good air entry. CARDIOVASCULAR: S1, S2 heard. No gallop, no murmur, no rub. Apical impulse in left fifth intercostal space and midclavicular line. ABDOMEN: Soft and benign. No hepatosplenomegaly. No guarding, no rigidity. Hernial orifices are normal. EXTREMITIES: Good pedal pulses. No pedal edema. CENTRAL NERVOUS SYSTEM: Alert and oriented x 4, nonfocal exam. SKIN: Normal. LABORATORY DATA: Significant for white count of 5000, hemoglobin of 12.8, hematocrit of 37.7. Electrolytes are normal. Urine normal. EKG normal sinus rhythm, nonspecific ST-T wave changes. ASSESSMENT AND PLAN: 1. Chest pain, rule out myocardial infarction, chest pain protocol. The patient to get serial cardiac enzymes and Lexiscan. 2. Vertigo, etiology unclear. The patient is not anemic. Electrolytes was normal. We will treat symptomatically with meclizine. 3. Deep venous thrombosis prophylaxis, heparin 5000 q.12h. JOB# [id number] M/NTS
[2017-11-04] MEDS: HEPARIN SUB-Q SCH (10:00)
[2017-11-04] MEDS: SODIUM CHLORIDE FLUSH SYRINGE 10 ML IV SCH (10:00)
[2017-11-04] MEDS: PEPCID PO SCH (10:00)
--- NOTE | 2017-11-04 10:06 | Progress Note ---
Assessment and Plan Assessment and plan: Patient is a 32-year-old -[place] female who presented to the emergency department with complaints of left-sided chest pain which began 1 day prior to admission. Atypical chest pain Serial cardiac enzymes have been negative, stress test results are pending, etiologies unlikely ischemic in nature Vertigo Patient's dizziness has improved today, will continue symptomatic treatment with meclizine DVT prophylaxis Heparin History Interval history: Patient was seen and examined. She feels tightness in her chest at this time. She denies dizziness, shortness of breath, nausea vomiting. At the nursing notes reviewed Hospitalist Physical - Constitutional Vitals: Temp Pulse Resp BP Pulse Ox 98.1 F 78 18 108/58 98 11/04/17 04:24 11/04/17 04:24 11/04/17 04:24 11/04/17 04:24 11/04/17 04:24 General appearance: Present: no acute distress, well-nourished - EENT Eyes: Present: PERRL, EOM intact ENT: hearing intact, clear oral mucosa, dentition normal - Neck Neck: Present: supple, normal ROM - Respiratory Respiratory effort: normal Respiratory: bilateral: CTA - Cardiovascular Rhythm: regular Heart Sounds: Present: S1 & S2 - Extremities Extremities: no ischemia, No edema - Abdominal General gastrointestinal: soft, non-tender, non-distended - Integumentary Integumentary: Present: clear, warm, dry - Psychiatric Psychiatric: appropriate mood/affect, intact judgment & insight, cooperative - Neurologic Neurologic: CNII-XII intact, moves all extremities - Allied Health Allied health notes reviewed: nursing Results - Labs CBC & Chem 7: 11/04/17 02:11 11/04/17 02:11 Labs: Laboratory Last Values WBC 4.9 K/mm3 (4.5-11.0) 11/04/17 02:11 RBC 4.51 M/mm3 (3.65-5.03) 11/04/17 02:11 Hgb 12.5 gm/dl (10.1-14.3) 11/04/17 02:11 Hct 37.0 % (30.3-42.9) 11/04/17 02:11 MCV 82 fl (79-97) 11/04/17 02:11 MCH 28 pg (28-32) 11/04/17 02:11 MCHC 34 % (30-34) 11/04/17 02:11 RDW 13.3 % (13.2-15.2) 11/04/17 02:11 Plt Count 297 K/mm3 (140-440) 11/04/17 02:11 Lymph % (Auto) 44.8 % (13.4-35.0) H 11/04/17 02:11 [place] % (Auto) 8.8 % (0.0-7.3) H 11/04/17 02:11 Eos % (Auto) 3.1 % (0.0-4.3) 11/04/17 02:11 Baso % (Auto) 0.9 % (0.0-1.8) 11/04/17 02:11 Lymph # 2.2 K/mm3 (1.2-5.4) 11/04/17 02:11 [place] # 0.4 K/mm3 (0.0-0.8) 11/04/17 02:11 Eos # 0.2 K/mm3 (0.0-0.4) 11/04/17 02:11 Baso # 0.0 K/mm3 (0.0-0.1) 11/04/17 02:11 Seg Neutrophils % 42.4 % (40.0-70.0) 11/04/17 02:11 Seg Neutrophils # 2.1 K/mm3 (1.8-7.7) 11/04/17 02:11 Sodium 138 mmol/L (137-145) 11/04/17 02:11 Potassium 4.0 mmol/L (3.6-5.0) 11/04/17 02:11 Chloride 102.5 mmol/L (98-107) 11/04/17 02:11 Carbon Dioxide 25 mmol/L (22-30) 11/04/17 02:11 Anion Gap 15 mmol/L 11/04/17 02:11 BUN 10 mg/dL (7-17) 11/04/17 02:11 Creatinine 0.7 mg/dL (0.7-1.2) 11/04/17 02:11 Estimated GFR > 60 ml/min 11/04/17 02:11 BUN/Creatinine Ratio 14 % 11/04/17 02:11 Glucose 113 mg/dL (65-100) H 11/04/17 02:11 Hemoglobin A1c 5.1 % (4-6) 11/03/17 19:50 Calcium 8.4 mg/dL (8.4-10.2) 11/04/17 02:11 Total Bilirubin 0.40 mg/dL (0.1-1.2) 11/04/17 02:11 AST 12 units/L (5-40) 11/04/17 02:11 ALT 11 units/L (7-56) 11/04/17 02:11 Alkaline Phosphatase 57 units/L (35-129) 11/04/17 02:11 Total Creatine Kinase 61 units/L (30-135) 11/03/17 14:13 CK-MB (CK-2) 1.1 ng/mL (0.0-4.0) 11/03/17 14:13 CK-MB (CK-2) Rel Index 1.8 (0-4) 11/03/17 14:13 Troponin T < 0.010 ng/mL (0.00-0.029) 11/04/17 07:28 Total Protein 6.1 g/dL (6.3-8.2) L 11/04/17 02:11 Albumin 3.5 g/dL (3.9-5) L 11/04/17 02:11 Albumin/Globulin Ratio 1.3 % 11/04/17 02:11 Urine Color Yellow (Yellow) 11/03/17 12:23 Urine Turbidity Clear (Clear) 11/03/17 12:23 Urine pH 7.0 (5.0-7.0) 11/03/17 12:23 Ur Specific [place] 1.016 (1.003-1.030) 11/03/17 12:23 Urine Protein <15 mg/dl mg/dL (Negative) 11/03/17 12:23 Urine Glucose (UA) Neg mg/dL (Negative) 11/03/17 12:23 Urine Ketones Neg mg/dL (Negative) 11/03/17 12:23 Urine Blood Sm (Negative) 11/03/17 12:23 Urine Nitrite Neg (Negative) 11/03/17 12:23 Urine Bilirubin Neg (Negative) 11/03/17 12:23 Urine Urobilinogen < 2.0 mg/dL (<2.0) 11/03/17 12:23 Ur Leukocyte Esterase Neg (Negative) 11/03/17 12:23 Urine WBC (Auto) < 1.0 /HPF (0.0-6.0) 11/03/17 12:23 Urine RBC (Auto) 3.0 /HPF (0.0-6.0) 11/03/17 12:23 U Epithel Cells (Auto) 2.0 /HPF (0-13.0) 11/03/17 12:23 Urine Mucus Few /HPF 11/03/17 12:23 Urine HCG, Qual Negative (Negative) 11/03/17 12:23
--- NOTE | 2017-11-04 15:03 | Discharge Summary ---
Providers - Providers Date of Admission: 11/03/17 19:42 Attending physician: SHAWN WINKLER MD Primary care physician: MARK MAI MD Hospitalization Condition: Serious Hospital course: Patient is a 32-year-old -[place] female who presented to the emergency department with complaints of left-sided chest pain which began 1 day prior to admission. Patient underwent a cardiac workup which began with serial cardiac enzymes which were negative. MPI was negative for ischemia. Etiology of patient's chest pain is likely that of GERD. Patient was medically stable for discharge home with a trial of Protonix. Patient's dizziness resolved during her hospital stay, however she insists that when she's at home moving around she gets weak and dizzy. Patient's H/H and BP have been normal during her hospital stay. Patient will be discharged with Meclizine PRN for dizziness an advised to follow up with her primary care provider for management. Discharge diagnoses Atypical chest pain Vertigo DVT prophylaxis Disposition: TO HOME OR SELFCARE Time spent for discharge: 32 minutes Core Measure Documentation - Palliative Care Palliative Care/ Comfort Measures: Not Applicable - Core Measures Any of the following diagnoses?: none Exam - Constitutional Vitals: Temp Pulse Resp BP Pulse Ox 98.1 F 78 20 108/58 98 11/04/17 04:24 11/04/17 04:24 11/04/17 10:00 11/04/17 04:24 11/04/17 04:24 General appearance: Present: no acute distress, well-nourished - EENT Eyes: Present: PERRL ENT: hearing intact, clear oral mucosa - Neck Neck: Present: supple, normal ROM - Respiratory Respiratory effort: normal Respiratory: bilateral: CTA - Cardiovascular Heart Sounds: Present: S1 & S2. Absent: rub, click - Extremities Extremities: pulses symmetrical, No edema Peripheral Pulses: within normal limits - Abdominal General gastrointestinal: Present: soft, non-tender, non-distended, normal bowel sounds Female genitourinary: Present: normal - Integumentary Integumentary: Present: clear, warm, dry - Musculoskeletal Musculoskeletal: gait normal, strength equal bilaterally - Psychiatric Psychiatric: appropriate mood/affect, intact judgment & insight - Neurologic Neurologic: CNII-XII intact, moves all extremities Plan Activity: fall precautions Weight Bearing Status: Weight Bear as Tolerated Diet: regular Follow up with: PRIMARY CAREMD [Primary Care Provider] - 3-5 Days Prescriptions: Meclizine [Antivert] 12.5 mg PO Q12H PRN #30 tablet PRN Reason: Vertigo Pantoprazole [Protonix TAB] 20 mg PO DAILY #30 tablet.
--- NOTE | 2017-11-04 15:27 | Progress Note ---
Assessment and Plan Assessment and plan: Chief complaint left-sided chest pain Vertigo etiology unclear will treat symptomatically with meclizine A three- vessel before insulin dictating for ankle is only as needed. Because this is same as always hold more because it Hospitalist Physical - Constitutional Vitals: Temp Pulse Resp BP Pulse Ox 98.1 F 78 20 108/58 98 11/04/17 04:24 11/04/17 04:24 11/04/17 10:00 11/04/17 04:24 11/04/17 04:24 General appearance: Present: no acute distress, well-nourished Results - Labs CBC & Chem 7: 11/04/17 02:11 11/04/17 02:11 Labs: Laboratory Last Values WBC 4.9 K/mm3 (4.5-11.0) 11/04/17 02:11 RBC 4.51 M/mm3 (3.65-5.03) 11/04/17 02:11 Hgb 12.5 gm/dl (10.1-14.3) 11/04/17 02:11 Hct 37.0 % (30.3-42.9) 11/04/17 02:11 MCV 82 fl (79-97) 11/04/17 02:11 MCH 28 pg (28-32) 11/04/17 02:11 MCHC 34 % (30-34) 11/04/17 02:11 RDW 13.3 % (13.2-15.2) 11/04/17 02:11 Plt Count 297 K/mm3 (140-440) 11/04/17 02:11 Lymph % (Auto) 44.8 % (13.4-35.0) H 11/04/17 02:11 [place] % (Auto) 8.8 % (0.0-7.3) H 11/04/17 02:11 Eos % (Auto) 3.1 % (0.0-4.3) 11/04/17 02:11 Baso % (Auto) 0.9 % (0.0-1.8) 11/04/17 02:11 Lymph # 2.2 K/mm3 (1.2-5.4) 11/04/17 02:11 [place] # 0.4 K/mm3 (0.0-0.8) 11/04/17 02:11 Eos # 0.2 K/mm3 (0.0-0.4) 11/04/17 02:11 Baso # 0.0 K/mm3 (0.0-0.1) 11/04/17 02:11 Seg Neutrophils % 42.4 % (40.0-70.0) 11/04/17 02:11 Seg Neutrophils # 2.1 K/mm3 (1.8-7.7) 11/04/17 02:11 Sodium 138 mmol/L (137-145) 11/04/17 02:11 Potassium 4.0 mmol/L (3.6-5.0) 11/04/17 02:11 Chloride 102.5 mmol/L (98-107) 11/04/17 02:11 Carbon Dioxide 25 mmol/L (22-30) 11/04/17 02:11 Anion Gap 15 mmol/L 11/04/17 02:11 BUN 10 mg/dL (7-17) 11/04/17 02:11 Creatinine 0.7 mg/dL (0.7-1.2) 11/04/17 02:11 Estimated GFR > 60 ml/min 11/04/17 02:11 BUN/Creatinine Ratio 14 % 11/04/17 02:11 Glucose 113 mg/dL (65-100) H 11/04/17 02:11 Hemoglobin A1c 5.1 % (4-6) 11/03/17 19:50 Calcium 8.4 mg/dL (8.4-10.2) 11/04/17 02:11 Total Bilirubin 0.40 mg/dL (0.1-1.2) 11/04/17 02:11 AST 12 units/L (5-40) 11/04/17 02:11 ALT 11 units/L (7-56) 11/04/17 02:11 Alkaline Phosphatase 57 units/L (35-129) 11/04/17 02:11 Total Creatine Kinase 61 units/L (30-135) 11/03/17 14:13 CK-MB (CK-2) 1.1 ng/mL (0.0-4.0) 11/03/17 14:13 CK-MB (CK-2) Rel Index 1.8 (0-4) 11/03/17 14:13 Troponin T < 0.010 ng/mL (0.00-0.029) 11/04/17 07:28 Total Protein 6.1 g/dL (6.3-8.2) L 11/04/17 02:11 Albumin 3.5 g/dL (3.9-5) L 11/04/17 02:11 Albumin/Globulin Ratio 1.3 % 11/04/17 02:11 Urine Color Yellow (Yellow) 11/03/17 12:23 Urine Turbidity Clear (Clear) 11/03/17 12:23 Urine pH 7.0 (5.0-7.0) 11/03/17 12:23 Ur Specific [place] 1.016 (1.003-1.030) 11/03/17 12:23 Urine Protein <15 mg/dl mg/dL (Negative) 11/03/17 12:23 Urine Glucose (UA) Neg mg/dL (Negative) 11/03/17 12:23 Urine Ketones Neg mg/dL (Negative) 11/03/17 12:23 Urine Blood Sm (Negative) 11/03/17 12:23 Urine Nitrite Neg (Negative) 11/03/17 12:23 Urine Bilirubin Neg (Negative) 11/03/17 12:23 Urine Urobilinogen < 2.0 mg/dL (<2.0) 11/03/17 12:23 Ur Leukocyte Esterase Neg (Negative) 11/03/17 12:23 Urine WBC (Auto) < 1.0 /HPF (0.0-6.0) 11/03/17 12:23 Urine RBC (Auto) 3.0 /HPF (0.0-6.0) 11/03/17 12:23 U Epithel Cells (Auto) 2.0 /HPF (0-13.0) 11/03/17 12:23 Urine Mucus Few /HPF 11/03/17 12:23 Urine HCG, Qual Negative (Negative) 11/03/17 12:23
--- NOTE | 2017-11-05 00:20 | Treadmill Report ---
INDICATION: Chest pain. ORDERING PHYSICIAN: Delfino Mcbride MD FINDINGS: There is no scintigraphic evidence of myocardial ischemia. The left ventricle is normal in size and systolic function. The left ventricular ejection fraction is measured at 75%. Normal wall motion and wall thickening is noted on gated imaging. CONCLUSION: 1. Normal perfusion scan. 2. This is a low risk myocardial perfusion scan associated with a 1-year cardiovascular event rate of less than 1%. JOB# [id number] DONNA/SUZIE
== END 2017-11-04 17:35 | disposition home or self-care (01) ==
LOC: ED 10:35 → INTOOBSV 19:42 → 4A 19:42
PROVIDERS: ADMIT Internal Medicine; ATTEND Internal Medicine
DX: R07.89 Other chest pain (principal); R42 Dizziness and giddiness; I10 Essential (primary) hypertension; E03.9 Hypothyroidism, unspecified; G43.909 Migraine, unspecified, not intractable, without status migrainosus; Z82.49 Family history of ischemic heart disease and other diseases of the circulatory system
CPT/HCPCS: 36415; 70450; 78452; 80048; 80053; 81001; 81025; 82550; 82553; 83036; 84484; 85025; 93005; 93010; 93017; 96360; 99285; A9502; G0378; J7030; 96361; 96374; J1644